=== PATIENT | male | born 2000 | race Caucasian/White ===

== ENCOUNTER → 2024-11-26 | Outpatient (CLI) | payer BC, SELFPAY ==
--- NOTE | 2024-11-26 08:37 | XR_ITS ---
Examination: Lumbar spine, 5 views Technique: Lumbar spine AP, lateral, coned lateral lower lumbar spine, bilateral obliques 5 views Exam date and time: November 26, 2024 0846 hours INDICATIONS: Low back pain 7 years. FINDINGS: Normal bone density. Satisfactory alignment lumbar vertebral bodies No lumbar fracture No significant lumbar disc narrowing No spondylolisthesis IMPRESSION: No lumbar fracture or arthritic change
== END | disposition home or self-care (01) ==
LOC: CDIM 08:29
PROVIDERS: PCP Pediatrics; Referring Provider Chiropractor; Visit Provider Chiropractor
DX: M54.50 Low back pain, unspecified (principal)
CPT/HCPCS: 72110